=== PATIENT | male | born 1995 | race Caucasian/White ===

== ENCOUNTER 2017-05-13 20:32 | Emergency (ER) | payer OTHER ==
[~2017-05-13] VITALS: Ht 185.4 cm; Wt 68.0 kg
[~2017-05-13 20:32] MED LIST: OXYC-865 PO; PENI-24 PO
--- NOTE | 2017-05-13 20:42 | ER Report ---
History and Physical Time Seen By MD: 20:42 Hx. of Stated Complaint: PT REPORTS THAT HE DID A FRONT FLIP IN GYMNASTICS AND "ROLLED" ON THE PINKY TOE OF HIS RIGHT FOOT "WRONG". HPI/ROS CHIEF COMPLAINT: Right foot pain HISTORY OF PRESENT ILLNESS: 21-year-old male patient presents to emergency room with complaint of right foot pain. Patient states that he was at the gymnastics gym and was doing a front handspring using mats. He states when he landed he landed awkwardly on the right foot. He immediately had pain to the right. He denies having any numbness or tingling to his foot. Patient states he has significant amounts of pain especially by the toes. He states the right fifth toe is the worse. He has not taken any medication for this. He denies having any previous injury to his foot. REVIEW OF SYSTEMS: Respiratory: No cough, no dyspnea. Cardiovascular: No chest pain, no palpitations. Gastrointestinal: No vomiting, no abdominal pain. Musculoskeletal: As noted above Allergies: Coded Allergies: shellfish derived (Verified Allergy, Severe, ANAPHYLAXIS, 05/13/17) Home Meds Active Scripts Hydrocodone Bit/Acetaminophen (HYDROCODON-ACETAMINOPHEN 5-325) 1 Each Tablet, 1 EACH PO Q4-6H Y for PAIN, #12 TAB Prov:RHINA GOMEZ ALIGNING INSPECTOR 05/13/17 Discontinued Scripts Oxycodone Hcl/Acetaminophen (PERCOCET 5-325 MG TABLET) 1 Each Tablet, 1 EACH PO Q4H Y for PAIN, #12 TAB Prov:TRI ISRAEL DO 06/12/16 Penicillin V Potassium 500 Mg Tab (PENICILLIN V POTASSIUM 500 MG TAB) 500 Mg Tablet, 500 MG PO QID for infection, #28 TAB Prov:TRI ISRAEL DO 06/12/16 Past Medical/Surgical History Patient has a past medical history of scoliosis. Patient denies any surgical history. Reviewed Nurses Notes: Yes Hx Substance Use Disorder: No Hx Alcohol Use: No Constitutional Vital Sign - Last 24 Hours 05/13/17 05/13/17 20:38 22:06 Temp 97.4 98.0 Pulse 80 84 Resp 14 14 B/P (MAP) 127/70 122/75 (91) Pulse Ox 95 97 O2 Delivery Room Air Physical Exam General Appearance: The patient is alert, has no immediate need for airway protection and no current signs of toxicity. Respiratory: Chest is non tender, lungs are clear to auscultation. Cardiac: regular rate and rhythm Musculoskeletal: Extremities have full range of motion and are non tender. Patient has tenderness over the third fourth and fifth metatarsals. The right fifth toe appears to be dislocated. Skin: No rashes or lesions. DIFFERENTIAL DIAGNOSIS: After history and physical exam differential diagnosis was considered for contusion, fracture, dislocation. Medical Decision Making EKG/Imaging Imaging EXAMINATION: Right foot 3 views HISTORY: Pain in toes 2-5, worse over the fifth toe. COMPARISON: None. FINDINGS: Dislocation of the MTP joint of the fifth toe. The proximal phalanx is displaced in a lateral and plantar direction relative to the metatarsal head, without visualized fracture. There are nondisplaced oblique fractures of the necks of the third and fourth metatarsals, best visualized on the oblique view. No evidence of additional fracture or dislocation in the right foot. Otherwise normal alignment. Joint spaces are preserved. Normal mineralization. Soft tissue swelling along the lateral forefoot. IMPRESSION: 1. Dislocation at the MTP joint of the right fifth toe without visualized fracture. 2. Nondisplaced fractures of the necks of the third and fourth metatarsals. Report Dictated By: Clinton Eisenberg MD at 05/13/2017 9:06 PM Report E-Signed By: Clinton Eisenberg MD at 05/13/2017 9:13 PM RIGHT FOOT: Indication: Post-reduction. Technique: 2 views were obtained. Comparison: The prior study from earlier the same day. Findings: The dislocation of the fifth proximal phalanx has been adequately reduced. The skeletal and soft tissue structures are otherwise unchanged. IMPRESSION: Satisfactory reduction of the fifth proximal phalanx. Report Dictated By: Jonel Coles MD at 05/13/2017 10:21 PM Report E-Signed By: Jonel Coles MD at 05/13/2017 10:23 PM ED Course/Re-evaluation ED Course Patient was admitted to exam room, history and physical were obtained. Differential diagnoses were considered. On examination patient has tenderness to the right foot, but appears to be dislocation of the right fifth toe. An x- ray was done of the right foot which shows a fracture to the third and fourth metatarsal as well as dislocation of the fifth toe. I discussed findings with the patient. We did anesthetize the toe using 1% lidocaine in a digital block fashion. After a few moments the toe was reduced as described below. A repeat x- ray was done which showed successful reduction of the toe. Patient was placed in a walking boot and was able to get up and ambulate. We'll go ahead and discharge patient home at this time. We will give him a limited supply of pain medication and have him follow-up with Dr. Low at [facility] and [facility]. I discussed with patient who verbalized understanding and agreement. Procedure: Dislocation reduction. The right fifth toe was reduced in the usual fashion without complications. Post reduction the patient's neurovascular exam is normal. Post reduction x-ray demonstrates reduction of the joint to the anatomic position. The procedure was performed by myself. Decision to Disposition Date: May 13, 2017 Decision to Disposition Time: 21:54 Depart Departure Latest Vital Signs Vital Signs Date Time Temp Pulse Resp B/P (MAP) Pulse Ox O2 Delivery O2 Flow Rate FiO2 05/13/17 22:06 98.0 84 14 122/75 (91) 97 05/13/17 20:38 Room Air Impression: Primary Impression: Metatarsal fracture Additional Impression: Toe dislocation Condition: Improved Disposition: HOME OR SELF-CARE New Scripts Hydrocodone Bit/Acetaminophen (HYDROCODON-ACETAMINOPHEN 5-325) 1 Each Tablet 1 EACH PO Q4-6H Y for PAIN, #12 TAB Prov: RHINA GOMEZ 05/13/17 Patient Instructions: Foot Fracture in Adults (ED) Additional Instructions: Follow up with [facility] and [facility], Dr. Low. Call tomorrow to make an appointment. Get plenty of rest. Limit activity by pain. Ice the foot. You may take the boot off to shower and to sleep. You may take Ibuprofen as needed for pain. Return to the ER if condition worsens. Problem Qualifiers Primary Impression: Metatarsal fracture Encounter type: initial encounter Metatarsal bone: unspecified metatarsal Fracture type: closed Fracture alignment: nondisplaced Laterality: right Qualified Codes: S92.301A - Fracture of unspecified metatarsal bone(s), right foot, initial encounter for closed fracture Additional Impression: Toe dislocation Encounter type: initial encounter Laterality: right Qualified Codes: S93.104A - Unspecified dislocation of right toe(s), initial encounter RHINA GOMEZ May 13, 2017 20:42
--- NOTE | 2017-05-13 21:16 | RADIOLOGY IMAGING REPORT ---
FACILITY: [facility] PATIENT NAME: Jann Lopez : 1995 MR: [id number] V: [id number] EXAM DATE: ORDERING PHYSICIAN: RHINA GOMEZ TECHNOLOGIST: Location: [facility] Patient: Jann Lopez : 1995 Visit/Account:[id number] Date of Sevice: 05/13/2017 EXAMINATION: Right foot 3 views HISTORY: Pain in toes 2-5, worse over the fifth toe. COMPARISON: None. FINDINGS: Dislocation of the MTP joint of the fifth toe. The proximal phalanx is displaced in a lateral and medardo ntar direction relative to the metatarsal head, without visualized fracture. There are nondisplaced oblique fractures of the necks of the third and fourth metatarsals, best visua lized on the oblique view. No evidence of additional fracture or dislocation in the right foot. Otherwise normal alignment. Join t spaces are preserved. Normal mineralization. Soft tissue swelling along the lateral forefoot. IMPRESSION: 1. Dislocation at the MTP joint of the right fifth toe without visualized fracture. 2. Nondisplaced fractures of the necks of the third and fourth metatarsals. Report Dictated By: Clinton Eisenberg MD at 05/13/2017 9:06 PM Report E-Signed By: Clinton Eisenberg MD at 05/13/2017 9:13 PM WSN:[id number]
[2017-05-13] MEDS ORDERED: ACET/HYDROC 5/325MG TH ER ONLY 2 TAB/BOTTLE PO ONE (21:50)
[2017-05-13] MEDS ORDERED: HYDR-385 PO (21:51)
[2017-05-13 22:06] VITALS: BP 122/75
--- NOTE | 2017-05-13 22:27 | RADIOLOGY IMAGING REPORT ---
FACILITY: [facility] PATIENT NAME: Jann Lopez : 1995 MR: [id number] V: [id number] EXAM DATE: ORDERING PHYSICIAN: RHINA GOMEZ TECHNOLOGIST: Location: [facility] Patient: Jann Lopez : 1995 Visit/Account:[id number] Date of Sevice: 05/13/2017 RIGHT FOOT: Indication: Post-reduction. Technique: 2 views were obtained. Comparison: The prior study from earlier the same day. Findings: The dislocation of the fifth proximal phalanx has been adequately reduced. The skeletal and soft tissue structures are otherwise unchanged. IMPRESSION: Satisfactory reduction of the fifth proximal phalanx. Report Dictated By: Jonel Coles MD at 05/13/2017 10:21 PM Report E-Signed By: Jonel Coles MD at 05/13/2017 10:23 PM WSN:[id number]
== END 2017-05-13 22:09 | disposition home or self-care (01) ==
LOC: ER 20:47
DX: S92.301A Fracture of unspecified metatarsal bone(s), right foot, initial encounter for closed fracture (principal); S93.104A Unspecified dislocation of right toe(s), initial encounter
CPT/HCPCS: 28630; 99283

== ENCOUNTER → 2018-09-02 | Outpatient (CLI) | payer OTHER ==
[~2018-09-02] MED LIST changes: +HYDR-385 PO
--- NOTE | 2018-09-02 15:56 | RADIOLOGY IMAGING REPORT ---
FACILITY: [facility] [place] PATIENT NAME: Jann Lopez : 1995 MR: [id number] V: [id number] EXAM DATE: ORDERING PHYSICIAN: SABRA CALDERON TECHNOLOGIST: Location: [facility] Patient: Jann Lopez : 1995 Visit/Account:[id number] Date of Sevice: 09/02/2018 TESTICULAR HISTORY: Palpable lump right testicle COMPARISON: None. FINDINGS: Testes: The right testicle measures 4.8 x 2.1 x 3.3 cm the left testicle measures 4.4 x 2.2 x 3.2 cm Symmetric and unremarkable blood flow documented by color and Duplex Doppler ultrasound. Epididymides: There is a 9 mm cyst in the head the epididymis on the right. There is a 4 mm cyst had epididymis on the left Blood flow is unremarkable in each epididymis by color Doppler ultrasound. Hydrocele: There mild bilateral hydroceles Varicocele: None. IMPRESSION: Small bilateral hydroceles Small cysts in the head the epididymides bilaterally Report Dictated By: Adeline Quiñones MD at 09/02/2018 3:50 PM Report E-Signed By: Adeline Quiñones MD at 09/02/2018 3:52 PM WSN:[email or web address]
== END ==
LOC: US 00:24
PROVIDERS: ATTEND Nurse Practitioner
DX: N43.3 Hydrocele, unspecified (principal)
CPT/HCPCS: 76870